=== PATIENT | female | born 1995 | race Hispanic/Latino ===

== ENCOUNTER 2017-08-14 19:45 | Emergency (ER) | payer BC, MEDICAID ==
[2017-08-14 20:37] LABS: APPEARANCE,URINE CLOUDY (CLEAR); BILIRUBIN,URINE SMALL (NEGATIVE); COLOR,URINE YELLOW (YELLOW); GLUCOSE, URINE (UA) NEGATIVE (NEGATIVE); KETONES,URINE NEGATIVE (NEGATIVE); LEUKOCYTE ESTERASE ,URINE MODERATE (NEGATIVE); NITRATE,URINE NEGATIVE (NEGATIVE); OCCULT BLOOD,URINE MODERATE (NEGATIVE); PROTEIN,URINE NEGATIVE (NEGATIVE)
[2017-08-14 20:42] LABS: HCG,QUAL RESULT NEGATIVE (NEGATIVE)
[2017-08-14 20:50] LABS: WBC,URINE 26-50 /HPF (0-1)
[2017-08-14 20:53] LABS: BACTERIA,URINE Few /HPF (None Seen); SQUAMOUS EPITHELIAL CELL,UR Few /LPF (0-2)
[2017-08-14 20:54] LABS: MUCUS,URINE Few LPF (None Seen)
[2017-08-14] MEDS ORDERED: LIDOCAINE HCL-MPF 1% 2ML VIAL ONE (21:03)
[2017-08-14] MEDS ORDERED: CEFTRIAXONE SODIUM 1 GM ONE (21:03)
== END 2017-08-14 21:18 | disposition home or self-care (01) ==
LOC: EDH 19:45
DX: N39.0 Urinary tract infection, site not specified (principal)
CPT/HCPCS: 74018; 81001; 81025; 87088; 87486; 87797; 96372; 99285; J0696; J3490

== ENCOUNTER 2022-06-23 12:04 | Emergency (ER) | payer BC, MEDICAID ==
[~2022-06-23] VITALS: Ht 170.2 cm; Wt 127.0 kg
[2022-06-23] MEDS ORDERED: CEFTRIAXONE 1G VIAL IM ONE (13:00)
[2022-06-23] MEDS ORDERED: LIDOCAINE HCL 1% 20 ML VIAL INJ SCH (13:00)
[2022-06-23] MEDS ORDERED: CLIN-141 PO (14:11)
[2022-06-23 14:17] VITALS: BP 134/76
== END 2022-06-23 14:23 | disposition home or self-care (01) ==
LOC: EDH 12:04
DX: L02.214 Cutaneous abscess of groin (principal); Z90.49 Acquired absence of other specified parts of digestive tract
CPT/HCPCS: 99283; 10060; 96372; J0696